=== PATIENT | female | born 1985 | race Caucasian/White ===

== ENCOUNTER 2019-03-05 12:58 | Emergency (ER) | payer SELFPAY ==
[~2019-03-05] VITALS: Ht 160 cm; Wt 97.5 kg
--- NOTE | 2019-03-05 13:36 | ED Lower Extremity ---
General Chief Complaint: Lower Extremity Stated Complaint: KNEE PAIN;SWELLING Nursing Triage Note: Was at work and was walking to take trash out. [place] a pop to rt knee and pain. States pressure to ant knee and pain to posterior. She states that it is swollen but noted to be mild if any. Able to weight bear and walk. Rachel at 2200 last night Nursing Sepsis Screen: No Definite Risk Source: patient Exam Limitations: no limitations History of Present Illness Date Seen by Provider: Mar 05, 2019 Time Seen by Provider: 06:20 Initial Comments To ER with reports of right posterior knee pain. This began last night when she was carrying out the trash at [employer] where she is employed. She did not fall. She is able to walk and bear weight. She reports a sudden popping sensation and pain. Onset: yesterday Severity: moderate Pain/Injury Location: right knee Method of Injury: unknown Modifying Factors: Worse With Movement Allergies and Home Medications Allergies Coded Allergies: No Known Drug Allergies (Unverified , 03/05/19) Patient Home Medication List Home Medication List Reviewed: Yes Review of Systems Constitutional: see HPI; No chills, No fever EENTM: see HPI Respiratory: no symptoms reported Cardiovascular: no symptoms reported Genitourinary: no symptoms reported Musculoskeletal: see HPI Skin: no symptoms reported Past Lcjwtog-Qcobtb-Athsxc Hx Patient Social History Alcohol Use: Denies Use Recreational Drug Use: No Smoking Status: Current Everyday Smoker Type Used: Cigarettes 2nd Hand Smoke Exposure: No Recent Foreign Travel: No Contact w/Someone Who Travel: No Recent Infectious Disease Expo: No Recent Hopitalizations: No Physical Abuse: No Sexual Abuse: No Mistreated: No Fear: No Seasonal Allergies Seasonal Allergies: No Past Medical History Surgeries: Yes Abdominal, Section, Tubal Ligation Respiratory: No Cardiac: Yes Hypertension Neurological: No Genitourinary: No Gastrointestinal: No Musculoskeletal: No Endocrine: No HEENT: No Cancer: No Psychosocial: No Integumentary: No Physical Exam Vital Signs Vital Signs - First Documented 03/05/19 13:06 Temp 98.4 Pulse 107 Resp 16 B/P (MAP) 133/95 (108) Pulse Ox 98 Capillary Refill : Less Than 3 Seconds Height, Weight, BMI Height: 5'3.00" Weight: 215lbs. oz. 97.030296wv; BMI Method:Stated General Appearance: WD/WN, no apparent distress HEENT: PERRL/EOMI Hips: bilateral hip non-tender, bilateral hip normal inspection Legs: bilateral leg non-tender, bilateral leg normal inspection Knees: bilateral knee non-tender, bilateral knee normal inspection, bilateral knee normal range of motion; left knee other (there is no effusion no erythema, full range of motion,) Ankles: bilateral ankle non-tender, bilateral ankle normal inspection, bilateral ankle normal range of motion Feet: bilateral foot non-tender, bilateral foot normal inspection, bilateral foot normal range of motion Neurologic/Psychiatric: alert, normal mood/affect, oriented x 3 Skin: normal color, warm/dry Progress/Results/Core Measures Results/Orders My Orders Orders - SHERLYN PURCELL APRN Knee, Right, 3 Views (03/05/19 13:12) Vital Signs/I&O 03/05/19 13:06 Temp 98.4 Pulse 107 Resp 16 B/P (MAP) 133/95 (108) Pulse Ox 98 Blood Pressure Mean: 108 Departure Impression Primary Impression: Internal derangement of left knee Disposition: 01 HOME, SELF-CARE Condition: Stable Departure-Patient Inst. Decision time for Depature: 13:35 Patient Instructions: Internal Derangement of the Knee Add. Discharge Instructions: 1. Return to ER for any concerns 2. Tylenol and motrin for pain 3. All discharge instructions reviewed with patient and/or family. Voiced understanding. Work/School Note: Work Release Form Date Seen in the Emergency Department: Mar 05, 2019 Return to Work: Mar 07, 2019 SHERLYN PURCELL APRN Mar 05, 2019 13:36
[2019-03-05] MEDS ORDERED: NAPR-1071 PO (14:01)
--- NOTE | 2019-03-05 14:16 | Diagnostic Imaging Report ---
INDICATION: Knee pain. Three views were obtained. FINDINGS: The alignment is normal. There are minimal degenerative changes. There is no fracture or dislocation. Soft tissues are unremarkable. IMPRESSION: Minimal degenerative changes, otherwise unremarkable. Dictated by: Dictated on workstation # [id number]
[2019-03-05 14:20] VITALS: BP 145/63
== END 2019-03-05 14:20 | disposition home or self-care (01) ==
LOC: ER 13:00
DX: M23.92 Unspecified internal derangement of left knee (principal); I10 Essential (primary) hypertension; F17.210 Nicotine dependence, cigarettes, uncomplicated; Z98.51 Tubal ligation status
CPT/HCPCS: 73562

== ENCOUNTER 2019-06-09 18:53 | Emergency (ER) | payer BC, OTHER ==
[~2019-06-09] VITALS: Ht 160 cm; Wt 102.0 kg
[~2019-06-09 18:53] MED LIST: NAPR-1071 PO
[2019-06-09] MEDS ORDERED: RT-ALBUTEROL/IPRATROPIUM 3 ML (DUONEB) VIAL INH ONE (19:30)
[2019-06-09] MEDS ORDERED: KETOROLAC 30 MG/ML VIAL IVP ONE (19:30)
--- NOTE | 2019-06-09 19:37 | ED Respiratory ---
General Chief Complaint: Respiratory Problems Stated Complaint: SOB Nursing Triage Note: c/o sob and right sided rib and back pain "wraps around rib cage." Source: patient Exam Limitations: no limitations History of Present Illness Date Seen by Provider: Jun 09, 2019 Time Seen by Provider: 19:32 Initial Comments To ER with right-sided chest pain that wraps around the rib cage starting yesterday evening worse today. Smokes a half pack daily, uses Kratom herbal supplement, history of opiate addiction and IV methamphetamine use. Currently works for [employer]. Pain worse with deep breathing. Timing/Duration: constant Severity: moderate Prior Episodes/Possible Cause: no prior episodes Associated Symptoms: chest pain/soreness Allergies and Home Medications Allergies Coded Allergies: No Known Drug Allergies (Unverified , 03/05/19) Home Medications Naproxen 500 Mg Tablet, 500 MG PO BID PRN for PAIN-MILD TO MODERATE Prescribed by: SHERLYN PURCELL on 03/05/19 1401 Patient Home Medication List Home Medication List Reviewed: Yes Review of Systems Review of Systems Constitutional: see HPI EENTM: see HPI Respiratory: see HPI, other (pleurodynia) Cardiovascular: no symptoms reported Genitourinary: no symptoms reported Musculoskeletal: no symptoms reported Skin: no symptoms reported Psychiatric/Neurological: No Symptoms Reported Past Vncqdzt-Bapovk-Ajjyxs Hx Patient Social History Alcohol Use: Rarely Uses Recreational Drug Use: No Smoking Status: Current Everyday Smoker Type Used: Electronic/Vapor 2nd Hand Smoke Exposure: No Recent Foreign Travel: No Contact w/Someone Who Travel: No Recent Infectious Disease Expo: No Recent Hopitalizations: No Physical Abuse: No Sexual Abuse: No Mistreated: No Fear: No Seasonal Allergies Seasonal Allergies: No Past Medical History Surgeries: Yes Abdominal, Section, Tubal Ligation Respiratory: No Cardiac: Yes Hypertension Neurological: No PIT [place]AGMAN History: Tubal Ligation Genitourinary: No Gastrointestinal: No Musculoskeletal: No Endocrine: No HEENT: No Cancer: No Psychosocial: No Integumentary: No Blood Disorders: No Physical Exam Vital Signs - First Documented 06/09/19 06/09/19 19:03 19:38 Temp 36.9 Pulse 100 Resp 20 B/P (MAP) 144/98 (113) Pulse Ox 99 O2 Delivery Room Air Capillary Refill : Less Than 3 Seconds Height: 5'3.00" Weight: 215lbs. oz. 97.719327xt; 39.00 BMI Method:Stated General Appearance: WD/WN, no apparent distress, obese Eyes: Bilateral Eye Normal Inspection, Bilateral Eye PERRL, Bilateral Eye EOMI HEENT: PERRL/EOMI, normal ENT inspection Neck: non-tender, full range of motion Respiratory: chest non-tender, lungs clear, normal breath sounds, no respirato ry distress, no accessory muscle use Cardiovascular: regular rate, rhythm, no murmur Gastrointestinal: normal bowel sounds, non tender, soft Neurologic/Psychiatric: alert, normal mood/affect Skin: normal color, warm/dry Progress/Results/Core Measures Suspected Sepsis Recent Fever Within 48 Hours: No Infection Criteria Present: None New/Unexplained Altered Menta: No Sepsis Screen: No Definite Risk SIRS Temperature: Pulse: 100 Respiratory Rate: 20 Laboratory Tests 06/09/19 20:00: White Blood Count 9.6 Blood Pressure 144 /98 Mean: 113 Laboratory Tests 06/09/19 20:00: Creatinine 0.76, Platelet Count 279, Total Bilirubin 0.2 Results/Orders Lab Results Laboratory Tests Test 06/09/19 20:00 Range/Units White Blood Count 9.6 4.3-11.0 10^3/uL Red Blood Count 4.43 4.35-5.85 10^6/uL Hemoglobin 13.1 11.5-16.0 G/DL Hematocrit 38 35-52 % Mean Corpuscular Volume 87 80-99 FL Mean Corpuscular Hemoglobin 30 25-34 PG Mean Corpuscular Hemoglobin Concent 34 32-36 G/DL Red Cell Distribution Width 12.6 10.0-14.5 % Platelet Count 279 130-400 10^3/uL Mean Platelet Volume 10.3 7.4-10.4 FL Neutrophils (%) (Auto) 59 42-75 % Lymphocytes (%) (Auto) 30 12-44 % Monocytes (%) (Auto) 9 0-12 % Eosinophils (%) (Auto) 3 0-10 % Basophils (%) (Auto) 0 0-10 % Neutrophils # (Auto) 5.6 1.8-7.8 X 10^3 Lymphocytes # (Auto) 2.8 1.0-4.0 X 10^3 Monocytes # (Auto) 0.9 0.0-1.0 X 10^3 Eosinophils # (Auto) 0.3 0.0-0.3 10^3/uL Basophils # (Auto) 0.0 0.0-0.1 10^3/uL D-Dimer 0.60 H 0.00-0.49 UG/ML Sodium Level 140 135-145 MMOL/L Potassium Level 3.4 L 3.6-5.0 MMOL/L Chloride Level 106 98-107 MMOL/L Carbon Dioxide Level 25 21-32 MMOL/L Anion Gap 9 5-14 MMOL/L Blood Urea Nitrogen 8 7-18 MG/DL Creatinine 0.76 0.60-1.30 MG/DL Estimat Glomerular Filtration Rate > 60 BUN/Creatinine Ratio 11 Glucose Level 100 70-105 MG/DL Calcium Level 9.3 8.5-10.1 MG/DL Corrected Calcium 9.2 8.5-10.1 MG/DL Total Bilirubin 0.2 0.1-1.0 MG/DL Aspartate Amino Transf (AST/SGOT) 26 5-34 U/L Alanine Aminotransferase (ALT/SGPT) 36 0-55 U/L Alkaline Phosphatase 96 40-136 U/L Troponin I < 0.028 <0.028 NG/ML Total Protein 7.7 6.4-8.2 GM/DL Albumin 4.1 3.2-4.5 GM/DL Serum Test, Qualitative NEGATIVE NEGATIVE My Orders Orders - SHERLYN PURCELL APRN Ketorolac Injection (Toradol Injection) (06/09/19 19:30) Cbc With Automated Diff (06/09/19 19:27) Comprehensive Metabolic Panel (06/09/19 19:27) Chest Pa/Lat (2 View) (06/09/19 19:27) Fibrin Degradation Products (06/09/19 19:27) Troponin I (06/09/19 19:27) Ekg Tracing (06/09/19 19:27) Hcg,Qualitative Serum (06/09/19 19:27) Albuterol/Ipra Inhalation Soln (Duoneb I (06/09/19 19:30) Svn Small Volume Nebulizer (06/09/19 19:30) Ed Iv/Invasive Line Start (06/09/19 19:31) Ct Angio Chest W (06/09/19 20:37) Iohexol Injection (Omnipaque 350 Mg/Ml 1 (06/09/19 20:45) Received Contrast (Hold Metformin- Contr (06/09/19 20:45) Ns (Ivpb) (Sodium Chloride 0.9% Ivpb Bag (06/09/19 20:45) Medications Given in ED Current Medications Medications Dose Ordered Sig/Sage Route Start Time Stop Time Status Last Admin Dose Admin Albuterol/ Ipratropium 3 ml ONCE ONCE INH 06/09/19 19:30 06/09/19 19:31 DC 06/09/19 19:37 3 ML Iohexol 125 ml ONCE ONCE IV 06/09/19 20:45 06/09/19 20:46 DC 06/09/19 21:08 125 ML Ketorolac Tromethamine 30 mg ONCE ONCE IVP 06/09/19 19:30 06/09/19 19:31 DC 06/09/19 20:24 30 MG Sodium Chloride 100 ml ONCE ONCE IV 06/09/19 20:45 06/09/19 20:46 DC 06/09/19 21:08 80 ML Vital Signs/I&O 06/09/19 06/09/19 19:03 19:38 Temp 36.9 Pulse 100 Resp 20 B/P (MAP) 144/98 (113) Pulse Ox 99 98 O2 Delivery Room Air Capillary Refill : Less Than 3 Seconds Blood Pressure Mean: 113 Departure Impression Primary Impression: Pleuritic chest pain Disposition: 01 HOME, SELF-CARE Condition: Stable Departure-Patient Inst. Decision time for Depature: 21:18 Referrals: NO,LOCAL PHYSICIAN (PCP) Primary Care Physician Patient Instructions: Pleuritic Chest Pain Add. Discharge Instructions: 1. Tylenol and ibuprofen for pain control 2. Return if any concerns 3. See your doctor next week for recheck. All discharge instructions reviewed with patient and/or family. Voiced understanding. Work/School Note: Work Release Form Date Seen in the Emergency Department: Jun 09, 2019 Return to Work: Jun 11, 2019 SHERLYN PURCELL APRN Jun 09, 2019 19:37
[2019-06-09 20:14] LABS: BASOPHILS % (AUTO) 0 % (0-10); EOSINOPHILS # (AUTO) 0.3 10^3/uL (0.0-0.3); EOSINOPHILS % (AUTO) 3 % (0-10); HEMATOCRIT 38 % (35-52); HEMOGLOBIN 13.1 G/DL (11.5-16.0); LYMPHOCYTES # (AUTO) 2.8 X 10^3 (1.0-4.0); LYMPHOCYTES % (AUTO) 30 % (12-44); MEAN CORPUSCULAR HEMOGLOBIN 30 PG (25-34); MEAN CORPUSCULAR HGB CONC 34 G/DL (32-36); MEAN CORPUSCULAR VOLUME 87 FL (80-99); MEAN PLATELET VOLUME 10.3 FL (7.4-10.4); MONOCYTES # (AUTO) 0.9 X 10^3 (0.0-1.0); MONOCYTES % (AUTO) 9 % (0-12); NEUTROPHILS # (AUTO) 5.6 X 10^3 (1.8-7.8); NEUTROPHILS % (AUTO) 59 % (42-75); PLATELET COUNT 279 10^3/uL (130-400); RED CELL DISTRIBUTION WIDTH 12.6 % (10.0-14.5); WHITE BLOOD COUNT 9.6 10^3/uL (4.3-11.0)
--- NOTE | 2019-06-09 20:31 | Diagnostic Imaging Report ---
EXAM: Chest PA/LAT (2 view). INDICATION: Chest tightness. Shortness of air. COMPARISON: None. FINDINGS: Normal heart size and pulmonary vascularity. No dense consolidation, pleural effusion or pneumothorax. No acute osseous findings. IMPRESSION: No acute cardiopulmonary findings. Dictated by: Dictated on workstation # [id number]
[2019-06-09 20:34] LABS: ALANINE AMINOTRANSFERASE 36 U/L (0-55); ALBUMIN 4.1 GM/DL (3.2-4.5); ALKALINE PHOSPHATASE 96 U/L (40-136); BILIRUBIN,TOTAL 0.2 MG/DL (0.1-1.0); BUN/CREATININE RATIO 11; CALCIUM 9.3 MG/DL (8.5-10.1); CARBON DIOXIDE 25 MMOL/L (21-32); CHLORIDE 106 MMOL/L (98-107); CREATININE SERUM 0.76 MG/DL (0.60-1.30); GFR ESTIMATED > 60; GLUCOSE 100 MG/DL (70-105); POTASSIUM 3.4 MMOL/L (3.6-5.0); SODIUM 140 MMOL/L (135-145); TOTAL PROTEIN 7.7 GM/DL (6.4-8.2)
[2019-06-09] MEDS ORDERED: NS 100 ML (IVPB) BAG IV ONE (20:45)
[2019-06-09] MEDS ORDERED: IOHEXOL 350 MG/ML 150 ML (OMNIPAQUE 350) VIAL IV ONE (20:45)
[2019-06-09] MEDS ORDERED: HOLD METFORMIN - RECEIVED CONTRAST 20 ML VIAL IV SCH (20:45)
--- NOTE | 2019-06-09 21:17 | Diagnostic Imaging Report ---
PROCEDURE: CT angiography of the chest with contrast. TECHNIQUE: Multiple contiguous axial images were obtained through the chest after uneventful bolus administration of intravenous contrast. 3D reconstructed CTA MIP acquisitions were also performed. Auto Exposure Controls were utilized during the CT exam to meet ALARA standards for radiation dose reduction. INDICATION: Shortness of air. Chest tightness. COMPARISON: Chest radiograph also performed today. FINDINGS: No pulmonary artery filling defects. Normal caliber thoracic aorta without evidence of dissection. Normal heart size. No pericardial effusion. No mediastinal, hilar or axillary lymphadenopathy. The lungs are clear. No endobronchial lesions. No pleural effusion or pneumothorax. Osseous structures are intact. The visualized upper abdominal contents are negative. IMPRESSION: 1. No pulmonary embolus. No thoracic aortic aneurysm or dissection. 2. No acute CT findings in the chest. Dictated by: Dictated on workstation # [id number]
[2019-06-09 21:42] VITALS: BP 111/57
== END 2019-06-09 21:44 | disposition home or self-care (01) ==
LOC: EDUNIT# 18:53 → ER 18:54
DX: R09.1 Pleurisy (principal); I10 Essential (primary) hypertension; F17.290 Nicotine dependence, other tobacco product, uncomplicated; Z98.51 Tubal ligation status
CPT/HCPCS: 36415; 71046; 71275; 80053; 84484; 84703; 85025; 85379; 93005; 94640